=== PATIENT | female | born 1950 | race Caucasian/White ===

== ENCOUNTER 2019-02-13 07:12 | Day surgery (SDC) | payer OTHER ==
[~2019-02-13] VITALS: Ht 154.9 cm; Wt 84.5 kg
[~2019-02-13 07:12] MED LIST: SODIUM CHLORIDE 0.9% 1,000 ML IV ONE; SODIUM CHLORIDE 0.9% 1,000 ML ONE
[2019-02-13] MEDS ORDERED: NITR0.4T50 SL (07:44)
[2019-02-13] MEDS ORDERED: GLIP5 PO (07:44)
[2019-02-13] MEDS ORDERED: ATOR20TA86 PO (07:44)
[2019-02-13] MEDS ORDERED: ASPI-1182 PO (07:44)
[2019-02-13] MEDS ORDERED: FURO20 PO (07:44)
[2019-02-13] MEDS ORDERED: CHOL100018 PO (07:44)
[2019-02-13] MEDS ORDERED: LISI-662 PO (07:44)
[2019-02-13] MEDS ORDERED: INSNOV SQ (07:44)
[2019-02-13] MEDS ORDERED: ATEN100T PO (07:44)
[2019-02-13] MEDS ORDERED: FLUT16H NASAL (07:44)
[2019-02-13] MEDS ORDERED: NIFE90TA63 PO (07:44)
[2019-02-13] MEDS ORDERED: PRED10 PO (07:44)
[2019-02-13] MEDS ORDERED: GABA-531 PO (07:44)
[2019-02-13] MEDS ORDERED: LEVO500 PO (07:44)
[2019-02-13] MEDS ORDERED: ALBU8HFA IH (07:44)
[2019-02-13] MEDS ORDERED: INSLAN SQ (07:44)
[2019-02-13] MEDS ORDERED: HYDR25TA PO (07:44)
[2019-02-13] MEDS ORDERED: SUCR1TAB PO (07:44)
[2019-02-13] MEDS ORDERED: METF-960 PO (07:44)
[2019-02-13] MEDS ORDERED: HYDR-2924 PO (07:44)
[2019-02-13] MEDS ORDERED: FLUT1BLS IH (07:44)
[2019-02-13] MEDS ORDERED: AMLO10TA7 PO (07:44)
[2019-02-13] MEDS ORDERED: CILO100T PO (07:44)
[2019-02-13] MEDS ORDERED: MAGN250T29 PO (07:44)
[2019-02-13] MEDS ORDERED: OMEP20 PO (07:44)
[2019-02-13] MEDS ORDERED: CITA-106 PO (07:44)
[2019-02-13] MEDS ORDERED: FENO48TA20 PO (07:44)
[2019-02-13] MEDS ORDERED: PANT40TA25 PO (07:44)
[2019-02-13] MEDS ORDERED: MONT10TA21 PO (07:44)
[2019-02-13 07:53] LABS: GLUCOMETER DEV NAME(LOC) SDS.; GLUCOSE,POINT OF CARE 152 MG/DL (70-110)
[2019-02-13] MEDS ORDERED: MIDAZOLAM HCL 2 MG/2 ML VIAL ONE (08:05)
[2019-02-13] MEDS ORDERED: FentaNYL CITRATE-PF 100 MCG/2 ML VIAL ONE (08:06)
[2019-02-13] MEDS ORDERED: MethylPREDNISolone SOD SUCC 125 MG/2 ML VIAL IVP ONE (09:00)
[2019-02-13] MEDS ORDERED: MethylPREDNISolone SOD SUCC 125 MG/2 ML VIAL ONE (09:19)
[2019-02-13] MEDS ORDERED: BENZOCAINE 20% 50 MCG/SPRAY 57 GM TP ONE (12:00)
[2019-02-13] MEDS ORDERED: LIDOCAINE 2% 30 ML JELLY TP ONE (12:00)
[2019-02-13] MEDS ORDERED: ALBUTEROL SULFATE 2.5 MG/0.5 ML NEB SOLUTION NEB ONE (12:00)
[2019-02-13] MEDS ORDERED: LIDOCAINE 4% 50 ML SOLUTION TP ONE (12:00)
[2019-02-13] MEDS ORDERED: OXYGEN THERAPY IH SCH (20:00)
== END 2019-02-13 10:30 | disposition home or self-care (01) ==
LOC: SURGERY 07:12
PROVIDERS: ATTEND Internal Medicine Critical Care Medicine
DX: R05 Cough (principal); R91.1 Solitary pulmonary nodule; J34.89 Other specified disorders of nose and nasal sinuses; J98.8 Other specified respiratory disorders; J38.4 Edema of larynx; B37.0 Candidal stomatitis; E11.9 Type 2 diabetes mellitus without complications; I10 Essential (primary) hypertension; E78.00 Pure hypercholesterolemia, unspecified; Z98.890 Other specified postprocedural states; Z90.49 Acquired absence of other specified parts of digestive tract; Z98.42 Cataract extraction status, left eye
CPT/HCPCS: 31623; 31624; 71045; 82962; 87015; 87070; 87101; 87205; 87206; 87220; 88108; 88312; 93005; J2250; J2930; J3010; J7030

== ENCOUNTER 2024-07-28 06:35 | Day surgery (SDC) | payer OTHER ==
[~2024-07-28] VITALS: Ht 154.9 cm; Wt 70.9 kg
[~2024-07-28 06:35] MED LIST changes: +ALBU18HF12 IH; +AMLO-258 PO; +ASPI-1444 PO; +ATEN100T92 PO; +ATOR20TA PO; +CHOL25TA4 PO; +CILO100T3 PO; +CITA-144 PO; +FENO48TA12 PO; +FLUT16SP NASAL; +FLUT1BLS IH; +FURO20TA5 PO; +GABA-1181 PO; +GLIP5TAB16 PO; +HYDR25TA2 PO; +HYDR50TA36 PO; +INSLAN SQ; +INSNOV SQ; +LEVO-72 PO; +LISI-894 PO; +MAGN250T29 PO; +METF-1211 PO; +MONT-35 PO; +NIFE90TA91 PO; +NITR0.4T50 SL; +OMEP-148 PO; +PANT-31 PO; +PRED-729 PO; -SODIUM CHLORIDE 0.9% 1,000 ML IV ONE; -SODIUM CHLORIDE 0.9% 1,000 ML ONE; +SUCR1TAB2 PO
[2024-07-28] MEDS ORDERED: ALBUTEROL SULFATE 2.5 MG/0.5 ML NEB SOLUTION NEB ONE (06:36)
[2024-07-28] MEDS ORDERED: BENZOCAINE 20% 50 MCG/SPRAY 57 GM TP ONE (06:36)
[2024-07-28] MEDS ORDERED: LIDOCAINE 4% 50 ML SOLUTION TP ONE (06:36)
[2024-07-28] MEDS ORDERED: LIDOCAINE 2% 11 ML JELLY TP ONE (06:36)
[2024-07-28] MEDS ORDERED: SODIUM CHLORIDE 0.9% 1,000 ML ONE (06:41)
[2024-07-28] MEDS: SODIUM CHLORIDE 0.9% 1,000 ML IV ONE (07:23)
[2024-07-28] MEDS ORDERED: ROSU20TA98 PO (07:29)
[2024-07-28] MEDS ORDERED: MECL-226 PO (07:29)
[2024-07-28] MEDS ORDERED: TRAZ-252 PO (07:29)
[2024-07-28] MEDS ORDERED: METO50 PO (07:29)
[2024-07-28] MEDS ORDERED: ISOS30TA92 PO (07:29)
[2024-07-28] MEDS ORDERED: LACT10SO85 PO (07:29)
[2024-07-28] MEDS ORDERED: DICL100G60 TP (07:29)
[2024-07-28] MEDS ORDERED: SODI10PO3 PO (07:29)
[2024-07-28] MEDS ORDERED: FERR325T27 PO (07:29)
[2024-07-28] MEDS ORDERED: DOCU-412 PO (07:29)
[2024-07-28] MEDS ORDERED: FAMO20 PO (07:29)
[2024-07-28] MEDS ORDERED: FINE10TA PO (07:29)
[2024-07-28] MEDS ORDERED: LOSA-381 PO (07:29)
[2024-07-28] MEDS ORDERED: SEMA0.258 SQ (07:29)
[2024-07-28] MEDS ORDERED: DAPA5TAB PO (07:29)
[2024-07-28] MEDS ORDERED: CHOL500050 PO (07:29)
[2024-07-28] MEDS ORDERED: GLUC0.5A INJ (07:31)
[2024-07-28] MEDS ORDERED: FentaNYL CITRATE PF 100 MCG/2 ML VIAL ONE (07:31)
[2024-07-28] MEDS ORDERED: MIDAZOLAM HCL 2 MG/2 ML VIAL ONE (07:31)
[2024-07-28 09:10] VITALS: PULSE 72; RESP 16; O2SAT 100
[2024-07-28] MEDS ORDERED: MethylPREDNISolone SOD SUCC 125 MG/2 ML VIAL ONE (09:32)
[2024-07-28] MEDS: MethylPREDNISolone SOD SUCC 125 MG/2 ML VIAL IVP ONE (09:38)
[2024-07-28 10:06] LABS: GLUCOMETER DEV NAME(LOC) SDS.; GLUCOSE,POINT OF CARE 119 MG/DL (70-110)
== END 2024-07-28 13:30 | disposition home or self-care (01) ==
LOC: SURGERY 06:35
PROVIDERS: ATTEND Internal Medicine Critical Care Medicine
DX: R05.3 Chronic cough (principal); J38.4 Edema of larynx; B37.0 Candidal stomatitis; J45.909 Unspecified asthma, uncomplicated; I10 Essential (primary) hypertension; E11.9 Type 2 diabetes mellitus without complications; Z79.82 Long term (current) use of aspirin; Z88.6 Allergy status to analgesic agent; Z88.8 Allergy status to other drugs, medicaments and biological substances; Z98.890 Other specified postprocedural states
CPT/HCPCS: 31623; 82962; 87206; 87101; 87220; 87070; 31624; 94640; 71045; 87015; J3010; J2250; J2919; J7030; 88108; J7613; Z7610